=== PATIENT | female | born 1985 | race Asian ===

== ENCOUNTER 2018-02-11 09:26 | Outpatient (CLI) | payer OTHER | END 2018-02-11 10:41 | disposition home or self-care (01) | LOC: M LDO 09:26 | DX: O26.893 Other specified pregnancy related conditions, third trimester (principal); Z3A.39 39 weeks gestation of pregnancy | CPT/HCPCS: 59025 ==

== ENCOUNTER 2018-02-14 07:08 | Outpatient (CLI) | payer OTHER | END 2018-02-14 08:55 | disposition home or self-care (01) | LOC: M LDO 07:08 | DX: O47.1 False labor at or after 37 completed weeks of gestation (principal); Z3A.40 40 weeks gestation of pregnancy | CPT/HCPCS: 59025 ==

== ENCOUNTER → 2019-05-06 | Outpatient (CLI) | payer OTHER ==
[~2019-05-06] MED LIST: COLA100C5 PO; IBUP-1114 PO; ISOVUE-370 76% 100ML VIAL (Q9967) As Ordered ONE; MAPA500T2 PO; PRENTAB9 PO; PROC2.5C TOP
--- NOTE | 2019-05-07 08:31 | REP ---
Soft-tissue neck CT study with IV contrast: History: Right posterior neck mass. 2-year history, intermittent swelling. No comparison imaging is available at this juncture. CT contrast dose: 75 mL of intravenous Isovue 370. CT findings: Visualized intracranial structures are unremarkable. No intraorbital lesion is seen. Paranasal sinuses are clear except for a 1 cm mucous retention cyst in the right maxillary sinus. No bony destructive lesion is seen. The lung apices are clear. An aberrant right subclavian artery is noted incidentally in the upper mediastinum. There are scattered normal-sized anterior and posterior cervical lymph nodes. There is no evidence of mass or adenopathy. The parotid glands are normal and symmetric. The right submandibular gland is slightly larger than the left but not felt to be abnormal. There is no evidence of sialolith or adenitis. Floor of mouth and tongue base are unremarkable. Epiglottis and aryepiglottic folds are intact. Tonsillar and peritonsillar soft tissues are unremarkable. Impression: Scattered normal-appearing lymph nodes. No neck mass or adenopathy seen. Aberrant right subclavian artery noted incidentally. Electronically Signed by Rusty Collins MD 05/07/2019 09:28 A
== END ==
LOC: M RAD 17:27
PROVIDERS: ATTEND Nurse Practitioner Primary Care
DX: R22.0 Localized swelling, mass and lump, head (principal)
CPT/HCPCS: 70491; Q9967